=== PATIENT | male | born 1980 | race Two or more races ===

== ENCOUNTER 2022-06-09 20:48 | Emergency (ER) | payer SELFPAY ==
[~2022-06-09] VITALS: Ht 170.2 cm; Wt 101.3 kg
[2022-06-09 21:00] VITALS: BP 134/89
[2022-06-09] MEDS ORDERED: diphenhdrAMINE HCL 50 MG/1 ML VL IM ONE (21:15)
[2022-06-09] MEDS ORDERED: FAMOTIDINE 20 MG TAB PO ONE (21:15)
[2022-06-09] MEDS ORDERED: DexAMETHasone SOD PHOS 10MG/1ML VIAL INJ IM ONE (21:15)
[2022-06-09] MEDS ORDERED: PRED20TA2 PO (23:54)
== END 2022-06-10 01:51 | disposition home or self-care (01) ==
LOC: ER 20:48
DX: T78.40XA Allergy, unspecified, initial encounter (principal); X58.XXXA Exposure to other specified factors, initial encounter
CPT/HCPCS: 96372; 99284; J1100; J1200